=== PATIENT | female | born 1985 | race Caucasian/White ===

== ENCOUNTER 2017-03-15 09:09 | Emergency (ER) | payer OTHER ==
[~2017-03-15] VITALS: Ht 177.8 cm; Wt 78.0 kg
[2017-03-15 11:21] VITALS: BP 118/74
== END 2017-03-15 11:21 | disposition home or self-care (01) ==
LOC: ED 09:09
DX: L02.811 Cutaneous abscess of head [any part, except face] (principal); H65.92 Unspecified nonsuppurative otitis media, left ear
CPT/HCPCS: J2001

== ENCOUNTER 2017-04-30 23:08 | Emergency (ER) | payer OTHER | END 2017-05-01 00:48 | disposition left against medical advice (07) | LOC: ED 23:08 | DX: Z53.21 Procedure and treatment not carried out due to patient leaving prior to being seen by health care provider (principal) ==

== ENCOUNTER 2017-05-01 05:42 | Emergency (ER) | payer OTHER ==
[~2017-05-01] VITALS: Ht 177.8 cm; Wt 80.3 kg
[2017-05-01 05:55] VITALS: Ht 177.8 cm; Wt 80.3 kg
[2017-05-01 06:57] VITALS: BP 105/67
== END 2017-05-01 06:57 | disposition home or self-care (01) ==
LOC: ED 05:42
DX: L50.9 Urticaria, unspecified (principal)

== ENCOUNTER 2017-05-09 13:45 | Emergency (ER) | payer OTHER ==
[~2017-05-09] VITALS: Ht 157.5 cm; Wt 82.5 kg
[2017-05-09 13:49] VITALS: Ht 157.5 cm; Wt 82.5 kg
[2017-05-09 18:22] VITALS: BP 128/62
== END 2017-05-09 18:22 | disposition home or self-care (01) ==
LOC: ED 13:45
DX: L27.0 Generalized skin eruption due to drugs and medicaments taken internally (principal); F17.200 Nicotine dependence, unspecified, uncomplicated; T50.995A Adverse effect of other drugs, medicaments and biological substances, initial encounter; Y92.89 Other specified places as the place of occurrence of the external cause
CPT/HCPCS: J0171; J1200; J2930

== ENCOUNTER 2018-10-06 19:45 | Emergency (ER) | payer OTHER ==
[~2018-10-06] VITALS: Ht 177.8 cm; Wt 86.2 kg
[2018-10-06 20:02] VITALS: Ht 177.8 cm; Wt 86.2 kg
[2018-10-06 20:38] LABS: microscopic required? NO
[2018-10-06 20:50] LABS: BASOPHIL % 1.6 % (0-2); PLATELET COUNT 215 x10^3mcL (130-400); RED CELL DISTRIBUTION WIDTH 12.6 % (11.5-14.5)
[2018-10-06 20:51] LABS: urine erythrocyte NEGATIVE (NEGATIVE)
[2018-10-06 22:25] VITALS: BP 102/62
== END 2018-10-06 22:25 | disposition home or self-care (01) ==
LOC: ED 19:45
PROVIDERS: Emergency Medicine
DX: O20.0 Threatened abortion (principal); Z90.49 Acquired absence of other specified parts of digestive tract
CPT/HCPCS: 36415; Q0092

== ENCOUNTER 2020-06-28 08:32 | Emergency (ER) | payer OTHER ==
[~2020-06-28] VITALS: Ht 177.8 cm; Wt 98.0 kg
[2020-06-28 08:41] VITALS: Ht 177.8 cm; Wt 98.0 kg
[2020-06-28] MEDS ORDERED: XANAX0.5 MG PO (09:08)
[2020-06-28 09:20] VITALS: BP 129/78
== END 2020-06-28 09:20 | disposition home or self-care (01) ==
LOC: ED 08:32
DX: F41.1 Generalized anxiety disorder (principal); F32.9 Major depressive disorder, single episode, unspecified; Z90.49 Acquired absence of other specified parts of digestive tract